=== PATIENT | female | born 1980 | race African-American/Black ===

== ENCOUNTER 2020-08-02 13:10 | Emergency (ER) | payer MEDICAID ==
[~2020-08-02] VITALS: Ht 160 cm; Wt 78.0 kg
[2020-08-02 13:51] LABS: CLARITY URINE CLEAR (CLEAR); COLOR URINE YELLOW (YELLOW); KETONES URINE NEGATIVE (NEGATIVE); LEUKOCYTE ESTERASE URINE NEGATIVE (NEGATIVE); NITRITE URINE NEGATIVE (NEGATIVE); OCCULT BLOOD URINE 1+ (NEGATIVE); PH URINE >=9.0 (4.5-8.0); PROTEIN URINE NEGATIVE (NEGATIVE)
[2020-08-02 14:48] VITALS: BP 112/77
[2020-08-02] MEDS ORDERED: SODIUM CHLORIDE 0.9% 1,000 ML IV ONE (14:49)
[2020-08-02] MEDS ORDERED: ACETAMINOPHEN 325MG TABLET PO STA (14:49)
[2020-08-02 16:49] LABS: BASOPHILS % 0.5 % (0.0-2.0); EOSINOPHILS % 1.1 % (0.0-5.0); HEMATOCRIT. 38.1 % (36.0-48.0); HEMOGLOBIN. 12.6 g/dL (12.0-16.0); LYMPHOCYTES % 32.9 % (20.0-50.0); MEAN CORPUSCULAR HEMOGLOBIN 27.2 pg (28.0-32.0); MEAN CORPUSCULAR VOLUME 82.1 fL (81.0-99.0); MEAN PLATELET VOLUME 9.5 fl (7.4-10.4); MONOCYTES % 7.3 % (2.0-8.0); NEUTROPHILS % 58.2 % (40.0-76.0); PLATELET 190 x1000/uL (130-400); RED BLOOD CELL COUNT 4.64 mill/uL (4.2-5.4)
[2020-08-02 16:52] LABS: CHLORIDE 105 mEq/L (98-107)
[2020-08-02 17:06] LABS: PROTHROMBIN TIME 10.3 sec (9.6-11.0)
[2020-08-02 17:17] LABS: B-HCG QUANTITATIVE 3623 mIU/mL (<3)
== END 2020-08-02 17:57 | disposition home or self-care (01) ==
LOC: ER 13:20
DX: O03.9 Complete or unspecified spontaneous abortion without complication (principal)
CPT/HCPCS: 36415; 76830; 76856; 80053; 81003; 81025; 84702; 85025; 85610; 86850; 86900; 86901; 93005; 99285; J7030

== ENCOUNTER 2025-09-11 10:39 | Emergency (ER) | payer OTHER, MEDICAID ==
[~2025-09-11] VITALS: Ht 170.2 cm; Wt 90.0 kg
[2025-09-11 10:43] VITALS: TEMP 36.8; O2SAT 100
[2025-09-11] MEDS: BACITRACIN 14GM TUBE TOP ONE (11:15)
[2025-09-11] MEDS: ACETAMINOPHEN 325MG TABLET PO ONE (11:15)
[2025-09-11] MEDS: TETANUS, DIPHTHERIA, PERTUSSIS VAC/PF 0.5ML (>10YR OLD) IM ONE (11:15)
[2025-09-11] MEDS ORDERED: BO1 TP (12:32)
[2025-09-11] MEDS ORDERED: IBUP-2030 MT (12:38)
[2025-09-11 12:41] VITALS: BP 109/74; PULSE 64; RESP 15; O2SAT 100
== END 2025-09-11 12:43 | disposition home or self-care (01) ==
LOC: ER 10:39
DX: S81.812A Laceration without foreign body, left lower leg, initial encounter (principal); S81.811A Laceration without foreign body, right lower leg, initial encounter; V89.2XXA Person injured in unspecified motor-vehicle accident, traffic, initial encounter; Y93.89 Activity, other specified; Y92.410 Unspecified street and highway as the place of occurrence of the external cause; Y99.8 Other external cause status
CPT/HCPCS: 73562; 73590; 99284; Z7610; 90715